=== PATIENT | male | born 1940 | race Caucasian/White ===

== ENCOUNTER → 2024-10-03 09:13 | Outpatient (REF) | payer MEDICARE, SELFPAY | LOC: RAD 09:13 | PROVIDERS: ATTENDING PHYSICIAN Internal Medicine | DX: M79.89 Other specified soft tissue disorders (principal) | CPT/HCPCS: 93971 ==

== ENCOUNTER → 2025-01-29 08:53 | Outpatient (REF) | payer MEDICARE, SELFPAY | LOC: MRI 3T 08:53 | PROVIDERS: ATTENDING PHYSICIAN Internal Medicine | DX: R51.9 Headache, unspecified (principal) | CPT/HCPCS: 70553; A9575 ==

== ENCOUNTER → 2025-02-20 12:02 | Outpatient (REF) | payer MEDICARE, SELFPAY | LOC: RAD 12:02 | PROVIDERS: ATTENDING PHYSICIAN Internal Medicine | DX: R10.30 Lower abdominal pain, unspecified (principal); R10.32 Left lower quadrant pain | CPT/HCPCS: 74177; Q9967 ==